=== PATIENT | female | born 1960 | race Caucasian/White ===

== ENCOUNTER → 2021-10-23 | Outpatient (CLI) | payer BC ==
[~2021-10-23] MED LIST: ABILIFY 5 MG TAB5 MG PO; COLESEVELAM HC625 MG PO; FAMOTIDINE40 MG PO; GLUCOPHAGE XR500 M1 PO; LEVOCETIRIZINE D5 MG PO; LEVOTHYROXINE125 MCG PO; LISINOPRIL-HCT1 EACH PO; TRADJENTA5 MG PO; VIIBRYD40 MG PO
== END ==
LOC: CT 07:20
DX: K74.60 Unspecified cirrhosis of liver (principal); K73.9 Chronic hepatitis, unspecified; Z20.822 Contact with and (suspected) exposure to COVID-19; K76.0 Fatty (change of) liver, not elsewhere classified; Z98.51 Tubal ligation status; E07.9 Disorder of thyroid, unspecified; F32.A Depression, unspecified; E11.36 Type 2 diabetes mellitus with diabetic cataract; N39.0 Urinary tract infection, site not specified
CPT/HCPCS: 36415; 77012; 82962; 85049; 85610; 85730; J2250; J2310; J3010; U0002

== ENCOUNTER → 2022-03-17 | Outpatient (CLI) | payer BC | LOC: KOH-I 09:16 | DX: K75.81 Nonalcoholic steatohepatitis (NASH) (principal); Z90.49 Acquired absence of other specified parts of digestive tract | CPT/HCPCS: 76705 ==